=== PATIENT | female | born 1965 | race Caucasian/White ===

== ENCOUNTER → 2022-01-08 | Outpatient (CLI) | payer BC ==
--- NOTE | 2022-01-15 19:22 | MM ---
Reason for Exam: Screening (asymptomatic). Last mammogram was performed 3 year(s) and 10 month(s) ago. Patient History: Menarche at age 15. First Full-Term at age 30. Postmenopausal. Paternal grandmother had breast cancer. Paternal aunt had breast cancer. Risk Values: Arlyn 5 year model risk: 1.3%. NCI Lifetime model risk: 9.3%. Prior Study Comparison: 01/09/2015 Bilateral MG 3D diag mammo w/cad [facility] - , [place]. 03/20/2018 Bilateral MG 3D screening mammo w/cad, [place]. Tissue Density: There are scattered fibroglandular densities. Findings: Analyzed By CAD. No significant change from prior exams. Overall Assessment: Negative, BI-RAD 1 Management: Screening Mammogram of both breasts in 1 year. 1. Patient should continue monthly self breast exams. 2. A clinical breast exam by your physician is recommended on an annual basis. 3. This exam should not preclude additional follow-up of suspicious palpable abnormalities. Electronically signed and approved by: Melissa Kaur M.D. Radiologist
== END | disposition home or self-care (01) ==
LOC: RADMAMWWP 07:42
PROVIDERS: ATTEND Family Medicine
DX: Z12.31 Encounter for screening mammogram for malignant neoplasm of breast (principal); Z78.0 Asymptomatic menopausal state; Z80.3 Family history of malignant neoplasm of breast
CPT/HCPCS: 77063; 77067

== ENCOUNTER 2022-01-27 01:12 | Observation (INO) | payer BC ==
[2022-01-27] MEDS ORDERED: ONDANSETRON 4 MG/2 ML VIAL IVP STA (01:34)
[2022-01-27] MEDS ORDERED: HYDROmorphone 1 MG/ML 1 ML SYRINGE IVP STA ×2 (01:34→02:23)
--- NOTE | 2022-01-27 01:36 | ED ---
General Adult HPI - General Chief complaint: Back Pain/Injury Stated complaint: kidney stone Time Seen by Provider: 01/27/22 01:24 Source: family, RN notes reviewed Mode of arrival: wheelchair Limitations: no limitations - History of Present Illness Initial comments: 56-year-old female presents to the emergency Department with complaints of left flank pain accompanied by nausea and vomiting. Reports known kidney stone; diagnosed on Thursday and declined hospital admission at that time. States pain resumed this evening and is uncontrolled with oral medications. Denies fever, headache, chest pain, shortness of breath, diarrhea, and constipation. - Related Data Previous Rx's Medication Instructions Recorded Ketorolac [Toradol] 10 mg PO Q8HR #15 tab 01/24/22 Tamsulosin [Flomax] 0.4 mg PO DAILY #7 cap 01/24/22 Allergies Allergy/AdvReac Type Severity Reaction Status Date / Time No Known Allergies Allergy Verified 01/27/22 01:23 Review of Systems ROS Statement: Those systems with pertinent positive or pertinent negative responses have been documented in the HPI. ROS Other: All systems not noted in ROS Statement are negative. Past Medical History Past Medical History: Hypertension Additional Past Medical History / Comment(s): kidney stone herniation lumbar disc History of Any Multi-Drug Resistant Organisms: None Reported Past Surgical History: Cholecystectomy Additional Past Surgical History / Comment(s): spine stimulator Past Psychological History: Depression Smoking Status: Current every day smoker Past Alcohol Use History: Rare Past Drug Use History: None Reported General Exam Limitations: no limitations General appearance: alert, in distress, other (Well-developed, well-nourished female in moderate distress due to pain. Initial temperature 98.2, pulse 86, respirations 18, blood pressure 146/83, pulse ox 99% on room air.) ENT exam: Present: normal oropharynx, mucous membranes moist Respiratory exam: Present: normal lung sounds bilaterally. Absent: respiratory distress, wheezes, rales, rhonchi, stridor Cardiovascular Exam: Present: regular rate, normal rhythm, normal heart sounds. Absent: systolic murmur, diastolic murmur, rubs, gallop, clicks GI/Abdominal exam: Present: soft, normal bowel sounds. Absent: distended, tenderness, guarding, rebound, rigid Back exam: Present: CVA tenderness (L) Neurological exam: Present: alert, oriented X3, normal gait Psychiatric exam: Present: anxious Skin exam: Present: warm, dry, intact, normal color Course Vital Signs 01/27/22 01:21 Temperature 98.2 F Pulse Rate 86 Respiratory 18 Rate Blood Pressure 146/83 O2 Sat by Pulse 99 Oximetry - Reevaluation(s) Reevaluation #1: 01/27/22 02:20 Upon reassessment, patient appears slightly improved. SHe is not actively vomiting and is less anxious. Discussed hospital admission vs discharge home; patient prefers to stay. 01/27/22 02:[address] Croft who agrees to accept this admission. Pain is improving though appears moderately uncomfortable. Medical Decision Making - Medical Decision Making This is a 56-year-old female recently diagnosed with a 6mm obstructing stone who presents to the emergency Department with complaints of increased left flank pain and vomiting. Upon exam, patient is ill-appearing and very uncomfortable. She is given IV fluids and pain medicine with some improvement. Laboratory studies were obtained showing potassium 3.3 which will be supplemented. Given patient's failed outpatient treatment hospital admission was discussed and patient is agreeable. I did speak with Dr. Croft, urology, who is willing to see this patient. Attending: David. - Lab Data Result diagrams: 01/27/22 01:45 01/27/22 01:45 Lab Results 01/27/22 01/27/22 Range/Units 01:45 01:45 WBC 8.0 (3.8-10.6) k/uL RBC 4.13 (3.80-5.40) m/uL Hgb 13.4 (11.4-16.0) gm/dL Hct 39.7 (34.0-46.0) % MCV 96.0 (80.0-100.0) fL MCH 32.5 (25.0-35.0) pg MCHC 33.8 (31.0-37.0) g/dL RDW 12.4 (11.5-15.5) % Plt Count 167 (150-450) k/uL MPV 9.3 Neutrophils % 58 % Lymphocytes % 35 % Monocytes % 4 % Eosinophils % 1 % Basophils % 0 % Neutrophils # 4.6 (1.3-7.7) k/uL Lymphocytes # 2.8 (1.0-4.8) k/uL Monocytes # 0.3 (0-1.0) k/uL Eosinophils # 0.1 (0-0.7) k/uL Basophils # 0.0 (0-0.2) k/uL Sodium 134 L (137-145) mmol/L Potassium 3.3 L (3.5-5.1) mmol/L Chloride 98 (98-107) mmol/L Carbon Dioxide 24 (22-30) mmol/L Anion Gap 12 mmol/L BUN 16 (7-17) mg/dL Creatinine 1.01 (0.52-1.04) mg/dL Est GFR (CKD-EPI)AfAm 73 (>60 ml/min/1.73 sqM) Est GFR (CKD-EPI)NonAf 63 (>60 ml/min/1.73 sqM) Glucose 108 H (74-99) mg/dL Calcium 9.7 (8.4-10.2) mg/dL Total Bilirubin 0.4 (0.2-1.3) mg/dL AST 24 (14-36) U/L ALT 15 (4-34) U/L Alkaline Phosphatase 89 (38-126) U/L Total Protein 6.8 (6.3-8.2) g/dL Albumin 4.4 (3.5-5.0) g/dL Disposition Clinical Impression: Intractable pain, Nausea and vomiting, Kidney stone on left side Disposition: ADMITTED IP TO THIS [facility] Condition: Serious Is patient prescribed a controlled substance at d/c from ED?: No Referrals: Ba Sullivan MD [Primary Care Provider] - 1-2 days Decision Date: 01/27/22 Decision Time: 02:38
[2022-01-27 02:00] LABS: Basophils % (A) 0 %; Eosinophils # (A) 0.1 k/uL (0-0.7); Eosinophils % (A) 1 %; HCT 39.7 % (34.0-46.0); HGB 13.4 gm/dL (11.4-16.0); Lymphocytes # (A) 2.8 k/uL (1.0-4.8); Lymphocytes % (A) 35 %; MCH 32.5 pg (25.0-35.0); MCHC 33.8 g/dL (31.0-37.0); Mean Platelet Volume 9.3; Monocytes # (A) 0.3 k/uL (0-1.0); Monocytes % (A) 4 %; Neutrophils # (A) 4.6 k/uL (1.3-7.7); Neutrophils % (A) 58 %; Platelet Count 167 k/uL (150-450); RBC 4.13 m/uL (3.80-5.40); RDW 12.4 % (11.5-15.5)
[2022-01-27 02:11] LABS: Albumin 4.4 g/dL (3.5-5.0); Calcium 9.7 mg/dL (8.4-10.2); Potassium 3.3 mmol/L (3.5-5.1); Total Bilirubin 0.4 mg/dL (0.2-1.3); Total Protein 6.8 g/dL (6.3-8.2)
[2022-01-27] MEDS ORDERED: NALOXONE 0.4 MG/ML 1 ML VIAL IV PRN (02:38)
[2022-01-27] MEDS ORDERED: HYDROmorphone 1 MG/ML 1 ML SYRINGE IVP PRN (02:38)
[2022-01-27] MEDS ORDERED: ONDANSETRON 4 MG/2 ML VIAL IVP PRN (02:38)
[2022-01-27] MEDS ORDERED: KETOROLAC 15 MG/ML 1 ML VIAL IVP PRN (02:38)
[2022-01-27] MEDS ORDERED: ACETAMINOPHEN TAB 325 MG TAB PO PRN (02:38)
[2022-01-27] MEDS ORDERED: POTASSIUM CHLORIDE ER 20 MEQ TAB.ER PO STA (02:40)
[2022-01-27] MEDS ORDERED: SODIUM CHLORIDE 0.9% 1,000 ML IV SCH (02:45)
[2022-01-27] MEDS ORDERED: ORPHENADRINE 30 MG/ML 2 ML VIAL IVP STA (03:17)
--- NOTE | 2022-01-27 08:23 | P.GSHP ---
History of Present Illness H&P Date: 01/27/22 56-year-old female admitted to the hospital last night with severe left ureteral colic due to a 6-7 mm proximal ureteral stone. The patient recently moved from [place]. She is known about his renal stone for several months. She was to have extracorporeal shockwave lithotripsy in [place] but moved here suddenly and therefore this was not performed. The last couple of days the stone moved out of the kidney into the ureter and presented with severe colic. She had a computed tomography scan 48 hours ago identifying the stone location. He did not stay in the hospital that point time only to come back to the emergency room last night because of the persistent colic. The patient may have had a stone before but never collected 1. She's never had surgical procedures before. She is not febrile. She is comfortable this point in time. - Constitutional Constitutional: Denies chills, Denies fever - EENT Eyes: denies blurred vision, denies pain Ears, nose, mouth and throat: Denies headache, Denies sore throat - Cardiovascular Cardiovascular: Denies chest pain, Denies shortness of breath - Respiratory Respiratory: Denies cough, Denies 7 - Gastrointestinal Gastrointestinal: Denies abdominal pain, Denies diarrhea, Denies nausea, Denies vomiting - Genitourinary (Female) Genitourinary: Denies dysuria, Denies hematuria - Genitourinary (Male) Genitourinary: Denies dysuria, Denies hematuria - Musculoskeletal Musculoskeletal: Denies myalgias - Integumentary Integumentary: Denies pruritus, Denies rash - Neurological Neurological: Denies numbness, Denies weakness - Psychiatric Psychiatric: Denies anxiety, Denies depression - Endocrine Endocrine: Denies fatigue, Denies weight change Past Medical History Past Medical History: Hypertension Additional Past Medical History / Comment(s): kidney stone herniation lumbar disc History of Any Multi-Drug Resistant Organisms: None Reported Past Surgical History: Cholecystectomy Additional Past Surgical History / Comment(s): spine stimulator Past Psychological History: Depression Smoking Status: Current every day smoker Past Alcohol Use History: Rare Past Drug Use History: None Reported Medications and Allergies Home Medications Medication Instructions Recorded Confirmed Type Ketorolac [Toradol] 10 mg PO Q8HR #15 tab 01/24/22 Rx Tamsulosin [Flomax] 0.4 mg PO DAILY #7 cap 01/24/22 Rx Allergies Allergy/AdvReac Type Severity Reaction Status Date / Time No Known Allergies Allergy Verified 01/27/22 01:23 Surgical - Exam Vital Signs Temp Pulse Resp BP Pulse Ox 98.2 F 86 18 146/83 99 01/27/22 01:21 01/27/22 01:21 01/27/22 01:21 01/27/22 01:21 01/27/22 01:21 - General well developed, well nourished, no distress - Eyes normal ocular movement, no icteric - ENT no hearing loss, no congestion - Neck no masses, trachea midline - Respiratory normal respiratory effort, clear to auscultation - Abdomen Abdomen: soft, non tender, no guarding, no rigid, no rebound - Integumentary no rash, no abnormal pigmentation - Neurologic no disoriented, no combative - Psychiatric oriented to time, oriented to person, oriented to place, speech is normal, memory intact Results - Labs 01/27/22 01:45 01/27/22 01:45 Abnormal Lab Results - Last 24 Hours (Table) 01/27/22 Range/Units 01:45 Sodium 134 L (137-145) mmol/L Potassium 3.3 L (3.5-5.1) mmol/L Glucose 108 H (74-99) mg/dL Diabetes panel 01/27/22 Range/Units 01:45 Sodium 134 L (137-145) mmol/L Potassium 3.3 L (3.5-5.1) mmol/L Chloride 98 (98-107) mmol/L Carbon Dioxide 24 (22-30) mmol/L BUN 16 (7-17) mg/dL Creatinine 1.01 (0.52-1.04) mg/dL Glucose 108 H (74-99) mg/dL Calcium 9.7 (8.4-10.2) mg/dL AST 24 (14-36) U/L ALT 15 (4-34) U/L Alkaline Phosphatase 89 (38-126) U/L Total Protein 6.8 (6.3-8.2) g/dL Albumin 4.4 (3.5-5.0) g/dL Calcium panel 01/27/22 Range/Units 01:45 Calcium 9.7 (8.4-10.2) mg/dL Albumin 4.4 (3.5-5.0) g/dL Pituitary panel 01/27/22 Range/Units 01:45 Sodium 134 L (137-145) mmol/L Potassium 3.3 L (3.5-5.1) mmol/L Chloride 98 (98-107) mmol/L Carbon Dioxide 24 (22-30) mmol/L BUN 16 (7-17) mg/dL Creatinine 1.01 (0.52-1.04) mg/dL Glucose 108 H (74-99) mg/dL Calcium 9.7 (8.4-10.2) mg/dL Adrenal panel 01/27/22 Range/Units 01:45 Sodium 134 L (137-145) mmol/L Potassium 3.3 L (3.5-5.1) mmol/L Chloride 98 (98-107) mmol/L Carbon Dioxide 24 (22-30) mmol/L BUN 16 (7-17) mg/dL Creatinine 1.01 (0.52-1.04) mg/dL Glucose 108 H (74-99) mg/dL Calcium 9.7 (8.4-10.2) mg/dL Total Bilirubin 0.4 (0.2-1.3) mg/dL AST 24 (14-36) U/L ALT 15 (4-34) U/L Alkaline Phosphatase 89 (38-126) U/L Total Protein 6.8 (6.3-8.2) g/dL Albumin 4.4 (3.5-5.0) g/dL - Imaging CT scan - abdomen: report reviewed, image reviewed CT scan - pelvis: report reviewed, image reviewed Assessment and Plan Assessment: Impression: Left ureteral stone with colic. Recommendations: The patient would like something done. I will check to see when the shockwave lithotripsy is available here. It is not available relatively shortly then I'll set her up for ureteroscopy and laser lithotripsy. This is been discussed with the patient.
[2022-01-27 08:40] VITALS: BP 95/59; PULSE 72; RESP 16; TEMP 98.5
== END 2022-01-27 11:33 | disposition home or self-care (01) ==
LOC: EC 01:12 → 6NMEDSUR 02:45
PROVIDERS: ADMIT Urology; ATTEND Urology
DX: N20.1 Calculus of ureter (principal); I10 Essential (primary) hypertension; M51.26 Other intervertebral disc displacement, lumbar region; F32.A Depression, unspecified; F17.200 Nicotine dependence, unspecified, uncomplicated; Z79.1 Long term (current) use of non-steroidal anti-inflammatories (NSAID); Z79.890 Hormone replacement therapy; Z79.899 Other long term (current) drug therapy; Z90.49 Acquired absence of other specified parts of digestive tract; Z87.442 Personal history of urinary calculi; Z96.82 Presence of neurostimulator
CPT/HCPCS: 96376; 96374; 96375; 99284; 36415; 80053; 85025; G0378; J2360; J2405; J1170; J1885

== ENCOUNTER → 2022-11-12 | Outpatient (CLI) | payer BC ==
--- NOTE | 2022-11-12 10:54 | CT ---
EXAMINATION TYPE: CT abdomen pelvis wo con DATE OF EXAM: 11/12/2022 COMPARISON: None HISTORY: left flank pain CT DLP: 562.2 mGycm Examination of the solid and hollow viscera is limited given the lack of contrast. FINDINGS: LUNG BASES: No evidence for nodule. No evidence for infiltrate. LIVER/GB: The gallbladder is surgically absent. No space-occupying hepatic lesion. PANCREAS: No pancreatic mass identified. No inflammatory process seen. SPLEEN: No evidence for splenomegaly. No intrasplenic lesions seen. ADRENALS: No adrenal nodules identified. No evidence for thickening. KIDNEYS: No evidence for renal mass. No nephrolithiasis. No hydronephrosis. BOWEL: Appendix has a normal appearance. No evidence of bowel obstruction. No inflammatory process. Lymph nodes: No evidence for adenopathy greater than 1 cm. Abdominal aorta: Atheromatous changes seen. No evidence for aneurysm. Genital organs: No significant abnormality. Other: No significant abnormality. IMPRESSION: NO ACUTE INTRA-ABDOMINAL PROCESS AT THIS TIME.
== END | disposition home or self-care (01) ==
LOC: RADCTMAIN 10:20
PROVIDERS: ATTEND Family Medicine
DX: R10.9 Unspecified abdominal pain (principal)
CPT/HCPCS: 74176

== ENCOUNTER → 2023-01-15 | Outpatient (CLI) | payer BC ==
--- NOTE | 2023-01-16 10:26 | MM ---
Reason for Exam: Screening (asymptomatic). Last screening mammogram was performed 12 month(s) ago. Patient History: Menarche at age 15. First Full-Term at age 30. Postmenopausal. Patient has history of breast feeding. Patient used Hormonal Contraceptives for 10 years. Paternal grandmother had breast cancer. Paternal aunt had breast cancer. Risk Values: Arlyn 5 year model risk: 1.3%. NCI Lifetime model risk: 9.1%. Prior Study Comparison: 01/09/2015 Bilateral MG 3D diag mammo w/cad [place] [id number], [place]. 03/20/2018 Bilateral MG 3D screening mammo w/cad, [place]. 01/08/2022 Bilateral MG 3D screening mammo w/cad, [facility]. Tissue Density: There are scattered fibroglandular densities. Findings: Analyzed By CAD. There is no suspicious group of microcalcifications or new suspicious mass in either breast. Overall Assessment: Negative, BI-RAD 1 Management: Screening Mammogram of both breasts in 1 year. . Patient should continue monthly self-breast exams. A clinical breast exam by your physician is recommended on an annual basis. This exam should not preclude additional follow-up of suspicious palpable abnormalities. Note on Arlyn scores and lifetime risk: 1. A Arlyn score greater than 3% is considered moderate risk. If this is the case, consider specialist referral to assess eligibility for a risk reducing agent. 2. If overall lifetime risk for the development of breast cancer is 20% or higher, the patient may qualify for future screening with alternating mammogram and breast MRI. Electronically signed and approved by: Beto Hudson M.D. Radiologis
== END | disposition home or self-care (01) ==
LOC: RADMAMWWP 09:34
PROVIDERS: ATTEND Family Medicine
DX: Z12.31 Encounter for screening mammogram for malignant neoplasm of breast (principal); R10.9 Unspecified abdominal pain; Z78.0 Asymptomatic menopausal state; Z80.3 Family history of malignant neoplasm of breast
CPT/HCPCS: 77063; 77067

== ENCOUNTER → 2023-07-13 | Outpatient (CLI) | payer BC ==
--- NOTE | 2023-07-16 14:23 | CT ---
EXAMINATION TYPE: CT lumbar spine wo con DATE OF EXAM: 07/13/2023 COMPARISON: None HISTORY: low back pain x20 years CT DLP: 742.6 mGycm CONTRAST: None TECHNIQUE: CT of the lumbar spine is performed on a spiral scan at 3 mm thick sections. Reconstructed images are performed in the coronal and sagittal planes. FINDINGS: Mild scoliosis is present. No spondylolisthesis is evident. Mild degenerative disc changes noted L4-5 T11-t12: No focal disc herniation or significant disc bulge is evident. No spinal canal stenosis or neural foraminal stenosis is present. Stimulator leads enter this level. T12-L1: No focal disc herniation or significant disc bulge is evident. No spinal canal stenosis or neural foraminal stenosis is present. L1-L2: No focal disc herniation or significant disc bulge is evident. No spinal canal stenosis or n eural foraminal stenosis is present L2-L3: No focal disc herniation or significant disc bulge is evident. No spinal canal stenosis or n eural foraminal stenosis is present L3-L4: The based disc bulge has anterior thecal sac flattening. No AP spinal canal stenosis is presen t. Neural foramen are patent. Mild facet degenerative changes are present at L4-L5: Broad-based disc bulge is present with anterior thecal sac flattening. Facet hypertrophy and l igamentum flavum laxity is present. These are contributing to spinal canal narrowing. Moderate bilate ral foraminal stenosis is present. L5-S1: Left paracentral disc herniation is present with anterior thecal sac contact. No thecal sac co mpression is evident. There is contact with the left exiting nerve root. Correlate with the radicular symptoms mild foraminal narrowing is present more moderate to severe foraminal stenosis on the right . IMPRESSION: 1. Broadbase mild disc bulge L4-5 with congenitally short pedicles and facet hypertrophy with some li gamentum flavum laxity contribute spinal canal stenosis at L4-5. 2. Moderate bilateral foraminal stenosis L4-5 moderate to severe right foraminal stenosis is present L5-S1 with moderate stenosis on the left. 3. Left paracentral disc herniation L5-S1 with minimal thecal sac contact without stenosis. There is contact the left exiting nerve root. Correlate with S1 radicular symptoms. 4. Mild disc space narrowing L4-5 compatible some degeneration. 5. Mild scoliosis
== END | disposition home or self-care (01) ==
LOC: RADCTMAIN 08:40
PROVIDERS: ATTEND Orthopaedic Surgery Orthopaedic Surgery of the Spine
DX: M47.816 Spondylosis without myelopathy or radiculopathy, lumbar region (principal); M24.28 Disorder of ligament, vertebrae; M99.73 Connective tissue and disc stenosis of intervertebral foramina of lumbar region; M51.27 Other intervertebral disc displacement, lumbosacral region; M41.86 Other forms of scoliosis, lumbar region; M51.36 Other intervertebral disc degeneration, lumbar region; M43.16 Spondylolisthesis, lumbar region; M62.830 Muscle spasm of back; Z96.82 Presence of neurostimulator
CPT/HCPCS: 72131